=== PATIENT | female | born 1945 | race Caucasian/White ===

== ENCOUNTER 2016-06-07 14:27 | Emergency (ER) | payer MEDICARE, OTHER ==
[~2016-06-07 14:27] MED LIST: ALLEGRA PO; ALLEGRA180 PO; AMB10 PO; AMBIEN CR12.5 MG PO; ASAB PO; CALTRA600D PO; CIP5 PO; COREG3 PO; DCN100 PO; DIOV80 PO; DIOVAN40 MG PO; DUONEB INH; FERROUS SULF325 M1 PO; FISH OIL1200 MG PO; FISH-EPA1000 MG PO; FLEX PO; GLUCOPHAGE1000 MG PO; GLUCPH PO; HABIT14 TOP; HALF81 PO; INHALER; IRON325 MG PO; KLOR-CON 1010 MEQ PO; KLOR-CON M1010 MEQ PO; KLOR-CON M2020 MEQ PO; L20 PO; L40 PO; LEVOTHYROXIN112 MCG PO; LEVOTHYROXIN50 MCG PO; LIPITOR80 MG PO; LOP25 PO; LORCET PO; LORTAB10 PO; MULTIPLE VIT PO; MULTIVIT/MIN PO; MULTIVITAMI1 PO; NORCO1 TAB PO; NORV25 PO; OXYCON20 PO; PLAVIX PO; PRIN2.5 PO; PROTONIX PO; RESTASIS OPH; ROXICODONE15 MG PO; SENTAB PO; SINGULAIR1 PO; SPIRIVA INH; STARLIX120 PO; SYMBICORT 160/41 INH INH; SYN112 PO; THERGRANM PO; TRAZ50 PO; VITAMIN D31000 UNIT PO; VITC500 PO; XANAX1 MG PO; XANAX2 MG PO; ZANTAC150 MG PO; ZOCOR20 PO; ZOCOR40 PO; ZOL50 PO; [UNRECOGNIZED DRUG - REMARK]
== END 2016-06-07 17:37 | disposition expired ==
LOC: ER 14:27
DX: R51 Headache (principal); R42 Dizziness and giddiness; R41.0 Disorientation, unspecified; J44.9 Chronic obstructive pulmonary disease, unspecified; I10 Essential (primary) hypertension; K21.9 Gastro-esophageal reflux disease without esophagitis; Z95.1 Presence of aortocoronary bypass graft
CPT/HCPCS: 99283